=== PATIENT | female | born 1985 | race Caucasian/White ===

== ENCOUNTER → 2020-09-02 | Outpatient (CLI) | payer OTHER ==
[~2020-09-02] MED LIST: GADOTERATE 7.5 MMOL/15ML VIAL. IVP ONE
--- NOTE | 2020-09-02 11:27 | KCIC ---
MRI PELVIS WITHOUT AND WITH IV CONTRAST: 09/02/2020 8:48 AM INDICATION: 35 years old Female. Pelvic pain for 3 months. Occasional abnormal bleeding. COMPARISON: None. TECHNIQUE: Multiplanar multisequence MR imaging of the pelvis was performed before and following intr avenous administration of gadolinium contrast agent. FINDINGS: UTERUS: Orientation: Anteverted. Size: 6.4 x 5.3 x 4.1 cm. Masses: None. Endometrium: 10 mm. Junctional zone: Unremarkable. Cervix: Unremarkable. RIGHT OVARY: 3.9 x 2.5 x 4.4 cm. There is a cyst in the right ovary measuring 2.6 cm with subtle high intrinsic T1 signal intensity which could reflect a hemorrhagic cyst. No low-level T2 signal hypoint ensity to suggest endometrioma. No mural nodule. LEFT OVARY: 2.5 x 2.1 x 2.7 cm. No ovarian mass. FREE FLUID: None. URINARY BLADDER: Unremarkable. BOWEL: Visualized bowel unremarkable. LYMPH NODES: Unremarkable. BONES: No suspicious osseous abnormality. IMPRESSION: 1. No suspicious uterine abnormality. 2. Suspect a hemorrhagic cyst in the right ovary measuring 2.6 cm. 3 month follow-up pelvic ultrasoun d could be of benefit to assess resolution. Electronically signed by: Allyson Owens MD (09/02/2020 11:25 AM) [id number]
== END ==
LOC: KCIC MRI 08:41
PROVIDERS: ATTEND Nurse Practitioner Women's Health
DX: N83.201 Unspecified ovarian cyst, right side (principal)
CPT/HCPCS: 72197; A9575